=== PATIENT | male | born 1995 | race Caucasian/White ===

== ENCOUNTER 2016-08-29 22:36 | Emergency (ER) | payer MEDICAID ==
[~2016-08-29 22:36] MED LIST: Vancomycin(*) 1,000 MG in NS 0.9% 250 ML* 250 ML IVPB ONE
[2016-08-29] MEDS ORDERED: Vancomycin(*) 1,000 MG in NS 0.9% 250 ML* 250 ML IVPB ONE (23:36)
[2016-08-29 23:46] LABS: Hematocrit 47 % (42-52); Hemoglobin 16.1 g/dl (14.0-18.0); Mean Corpuscular HGB Conc 34 g/dl (31-36); Mean Corpuscular Hemoglobin 32 pg (27-31); Mean Corpuscular Volume 92 fL (80-94); Mean Platelet Volume 7 um3 (7.4-10.4); Red Blood Count 5.07 10^6/ul (4.0-5.4); Red Cell Distribution Width 13 % (10.5-15); White Blood Count 14.9 10^3/ul (3.5-10.8)
--- NOTE | 2016-08-29 23:48 | ED ---
Skin Complaint - HPI Summary HPI Summary: Patient presents to ED with CC of abscess over ventral side of left wrist and radial side of middle finger x 5 days which has been worsening. There are two areas of abscesses. One abscess is located on the ventral side of the wrist and measures 1.5cm x 2cm, fluctuant with a large pus pocket. He has another small .5cm x .5cm abscess to the radial side of his left middle finger with a pus pocket and surrounding erythema. He was seen at and given Bactrim. Today he states the redness is now streaking up the arm, both abscesses have grown in size with surrounding erythema with warmth. He is unable to fully extend the finger or flex the finger. He is able to extend the wrist, but with pain which radiates to the elbow. He endorses numbness and tingling in the tip of the finger with radiation to the wrist. Pain is 8/10 and throbbing. Denies fever, aches, chills. He is profusely sweating, but states its at his baseline. - History of Current Complaint Chief Complaint: EDRashSkinAbscess Time Seen by Provider: 08/29/16 22:57 Stated Complaint: LT HAND SWOLLEN Hx Obtained From: Patient Onset/Duration: Started Days Ago Skin Exposure Onset/Duration: Days Ago Timing: Constant Onset Severity: Severe Current Severity: Moderate Pain Intensity: 9 Pain Scale Used: 0-10 Numeric Skin Location: Hand Character: Swelling, Pain, Redness, Raised, Painful Aggravating Symptom(s): Touch Alleviating Symptom(s): Nothing Associated Signs & Symptoms: Fever, Tenderness, Red Streaks, Joint Swelling - Allergy/Home Medications Allergies/Adverse Reactions: Allergies Allergy/AdvReac Type Severity Reaction Status Date / Time No Known Allergies Allergy Verified 09/21/15 11:57 PMH/Surg Hx/FS Hx/Imm Hx Previously Healthy: Yes Endocrine/Hematology History: Denies: Hx Diabetes, Hx Thyroid Disease Cardiovascular History: Denies: Hx Hypertension Respiratory History: Denies: Hx Asthma, Hx Chronic Obstructive Pulmonary Disease (COPD) GI History: Denies: Hx Ulcer - Immunization History Hx Pertussis Vaccination: No Immunizations Up to Date: Unable to Obtain/Confirm Infectious Disease History: Denies: Hx Hepatitis, Hx Human Immunodeficiency Virus (HIV), Traveled Outside the [place] in Last 30 Days - Social History Occupation: Employed Full-time Lives: With Family Alcohol Use: Occasionally Hx Substance Use: No Substance Use Type: Reports: Marijuana Hx Tobacco Use: Yes Smoking Status (MU): Light Every Day Tobacco Smoker Type: Cigars Amount Used/How Often: VERY RARE - SMOKES CIGARS Length of Time of Smoking/Using Tobacco: PAST FEW YEARS Review of Systems Positive: Fever, Skin Diaphoresis Eyes: Negative Cardiovascular: Negative Respiratory: Negative Positive: no symptoms reported, see HPI Positive: Arthralgia - left middle finger Positive: Other - erythematous wrist and middle finger of left hand with streaking up the arm Neurological: Negative Psychological: Normal All Other Systems Reviewed And Are Negative: Yes Physical Exam Triage Information Reviewed: Yes Vital Signs On Initial Exam: Initial Vitals Temp Pulse Resp BP Pulse Ox 99.2 F 142 20 131/80 99 08/29/16 22:38 08/29/16 22:38 08/29/16 22:38 08/29/16 22:38 08/29/16 22:38 Vital Signs Reviewed: Yes Appearance: Positive: Well-Appearing, No Pain Distress, Well-Nourished Skin: Positive: Warm, Skin Color Reflects Adequate Perfusion, Other - erythematous wrist and streaking up the arm Head/Face: Positive: Normal Head/Face Inspection Eyes: Positive: EOMI, KE, Conjunctiva Clear Respiratory/Lung Sounds: Positive: Clear to Auscultation, Decreased Breath Sounds Cardiovascular: Positive: Normal, RRR, Pulses are Symmetrical in both Upper and Lower Extremities Musculoskeletal: Positive: Normal, Strength/ROM Intact Neurological: Positive: Normal, Sensory/Motor Intact, Alert, Oriented to Person Place, Time, Speech Normal Psychiatric: Positive: Normal Diagnostics - Vital Signs Vital Signs Temp Pulse Resp BP Pulse Ox 08/29/16 22:38 99.2 F 142 20 131/80 99 - Laboratory Result Diagrams: 08/29/16 23:34 Lab Statement: Any lab studies that have been ordered have been reviewed, and results considered in the medical decision making process. Re-Evaluation - Re-Evaluation First Eval Change: Unchanged Second Eval Change: Improved Third Eval Change: Worse - worsening pain - given pain medication Course/Dx - Course Course Of Treatment: Patient presents to ED with CC of abscess over ventral side of left wrist and radial side of middle finger x 5 days. He states he has been unable move the wrist or finger for several days with worsening stiffness. There are two areas of abscesses. One abscess is located on the ventral side of the wrist and measures 1.5cm x 2cm, fluctuant with a large pus pocket. He has another small .5cm x .5cm abscess to the radial side of his left middle finger with a pus pocket and surrounding erythema.There is diffuse fusiform swelling at the base of the PIP joint extending distally. He has a slightly flexed finger at rest and pain along the flexor tendon of the wrist and middle left finger with passive motion. Performed I and D to both abscesses with good effect. Vanco 1000mg given IV. Copious amount of pus and sanguinous discharge from both abscesses. Upon re-evaluation, patient continues to be unable to extend through wrist and finger and c/o worsening pain on passive ROM. Slightly flexed finger at rest and the finger continues to have symmetric fusiform swelling despite copious drainage. Dr. Frey spoke with Dr. Oswaldo Palumbo at 1am who suggested we reach out to Dr. Gould. Dr. Gould does not operate on hands and recommended to transfer based on no appropriate hand ortho rodent control worker at this time. Patient made aware and family made aware and is OK with plan. Provider spoke with sister on phone who agrees with plan and would like the transfer. Called [facility] at 2:30am for the transfer - Dr Eden in the ED and Dr. Moran in ortho hand surgery who accepted patient for IV abx and evaluation of hand in the morning. After phone call, provider was made aware the abscess + MRSA. [place] ambulance notified and is en route. WBC 14.9. - Differential Diagnoses - Skin Complaint Differential Diagnoses: Abscess, Cellulitis, Other - tenosynovitis - Diagnoses Provider Diagnoses: Infectious tenosynovitis Discharge - Discharge Plan Condition: Stable Disposition: TRANS HIGHER LVL OF CARE FAC Referrals: Non Staff,Doctor [Primary Care Provider] -
[2016-08-30] MEDS ORDERED: HYDROcodone/ACETAMIN 5-325 MG* 1 TAB PO ONE (02:07)
[2016-08-30] MEDS ORDERED: HYDROcodone/ACETAMIN 5-325 MG* 1 TAB ONE ×2 (02:08)
--- NOTE | 2016-08-30 08:44 | ED ---
Art Isabel Rebecca, scribed for Halina Frey MD on 08/29/16 at 2352 . Progress - Progress Note Progress Note: Evaluated pt at Carissa's request. He confirmed that Carissa drained the wound from 2 locations. He reports pain is an aching and burning and that he has a limited ROM. Was on the Bactrim for 3 days prior to today. Examination reveals: Sausage digit, limited flexion, pain w/ passive ROM, lymphangitic streak to the proximal 3rd of the middle finger on the left hand. Re-Evaluation - Re-Evaluation First Eval Change: Unchanged Second Eval Change: Improved Third Eval Change: Worse - worsening pain - given pain medication Course/Dx - Course Course Of Treatment: Per Carissa's request, evaluated pt in the room. Discussed care of pt with Dr. Palumbo who explained that he does not do hands and will happily transfer if necessary. Carissa is handling the patient's transfer. - Diagnoses Provider Diagnoses: Infectious tenosynovitis - Provider Notifications Discussed Care Of Patient With: Oswaldo Palumbo Time Discussed With Above Provider: 00:52 Instructed by Provider To: Other - He does not handle hands. He is happy ot transfer the pt if necessary. The documentation as recorded by the Art hawk Rebecca accurately reflects the service I personally performed and the decisions made by me, Halina Frey MD.
--- NOTE | 2016-09-02 08:44 | ED ---
Progress - Progress Note Progress Note: Evaluated pt at Carissa's request. He confirmed that Carissa drained the wound from 2 locations. He reports pain is an aching and burning and that he has a limited ROM. Was on the Bactrim for 3 days prior to today. Examination reveals: Sausage digit, limited flexion, pain w/ passive ROM, lymphangitic streak to the proximal 3rd of the middle finger on the left hand. UPDATE: pt's wound cx reveals staph aureus - pt was transferred to [facility] fax results. rona Anthony aware. SYDNI ALANIZ 09/02/2016 8:44AM Re-Evaluation - Re-Evaluation First Eval Change: Unchanged Second Eval Change: Improved Third Eval Change: Worse - worsening pain - given pain medication Course/Dx - Course Course Of Treatment: Per Carissa's request, evaluated pt in the room. Discussed care of pt with Dr. Palumbo who explained that he does not do hands and will happily transfer if necessary. Carissa is handling the patient's transfer. - Diagnoses Provider Diagnoses: Infectious tenosynovitis - Provider Notifications Time Discussed With Above Provider: 00:52 Instructed by Provider To: Other - He does not handle hands. He is happy ot transfer the pt if necessary.
== END 2016-08-30 02:42 | disposition short-term general hospital (02) ==
LOC: ED 22:36
DX: M65.132 Other infective (teno)synovitis, left wrist (principal); M65.142 Other infective (teno)synovitis, left hand; L02.414 Cutaneous abscess of left upper limb; L02.512 Cutaneous abscess of left hand; B95.62 Methicillin resistant Staphylococcus aureus infection as the cause of diseases classified elsewhere
CPT/HCPCS: 10060; 10061; 36415; 85025; 87070; 87077; 87186; 87205; 87640; 87641; 96365; 99283; J3370

== ENCOUNTER 2017-07-08 18:12 | Emergency (ER) | payer MEDICAID, OTHER ==
--- NOTE | 2017-07-08 18:44 | RAD ---
INDICATION: Right shoulder dislocation COMPARISON: None TECHNIQUE: AP and Y views were obtained. FINDINGS: There is anterior shoulder dislocation. There is a small Hill-Sachs deformity. No additional findings. IMPRESSION: ANTERIOR SHOULDER DISLOCATION.
--- NOTE | 2017-07-08 19:08 | ED ---
Upper Extremity Pain - HPI Summary HPI Summary: Complains of right shoulder pain, possible right shoulder dislocation status post lifting garbage can up above the shoulder with abduction movement today. States history of recent right shoulder dislocation past 3-6 months x one. States he recently started doing pushups again with no pain, thought prior dislocation had healed. States prior dislocation either in [place] or [place], he cannot remember exactly when it happened or how it happened. Rates pain a 6 out of 10. Denies loss of sensation or function distally in right hand or arm. Medical history is none. - History of Current Complaint Chief Complaint: EDExtremityUpper Stated Complaint: RT SHOULDER INJURY Time Seen by Provider: 07/08/17 18:27 Hx Obtained From: Patient Onset/Duration: Started Minutes Ago Timing: Constant Severity Initially: Moderate Severity Currently: Moderate Pain Location: Shoulder Character: Sharp Aggravating Factor(s): Movement, Lifting, Abduction Alleviating Factor(s): Rest Associated Signs & Symptoms: Negative: Redness, Bruising, Fever, Numbness/ Tingling - Allergies/Home Medications Allergies/Adverse Reactions: Allergies Allergy/AdvReac Type Severity Reaction Status Date / Time No Known Allergies Allergy Verified 07/08/17 18:15 PMH/Surg Hx/FS Hx/Imm Hx Endocrine/Hematology History: Denies: Hx Diabetes, Hx Thyroid Disease Cardiovascular History: Denies: Hx Hypertension Respiratory History: Denies: Hx Asthma, Hx Chronic Obstructive Pulmonary Disease (COPD) GI History: Denies: Hx Ulcer Infectious Disease History: No Infectious Disease History: Denies: Hx Hepatitis, Hx Human Immunodeficiency Virus (HIV), Traveled Outside the in Last 30 Days - Social History Alcohol Use: Daily Alcohol Amount: 6 pack beer daily Hx Substance Use: No Substance Use Type: Reports: Marijuana Hx Tobacco Use: Yes Smoking Status (MU): Light Every Day Tobacco Smoker Type: Cigars Amount Used/How Often: VERY RARE - SMOKES CIGARS Length of Time of Smoking/Using Tobacco: PAST FEW YEARS Review of Systems Constitutional: Negative Eyes: Negative ENT: Negative Cardiovascular: Negative Respiratory: Negative Gastrointestinal: Negative Genitourinary: Negative Positive: Arthralgia Skin: Negative Neurological: Negative Psychological: Normal All Other Systems Reviewed And Are Negative: Yes Physical Exam - Summary Physical Exam Summary: PMS intact distally on right upper extremity. No evidence of erythema, extra warmth, ecchymosis to right shoulder. Full range of motion of right elbow, right wrist without indication of pain. Pain with abduction of right shoulder. Possible swelling/deformity to right anterior shoulder. Triage Information Reviewed: Yes Vital Signs On Initial Exam: Initial Vitals Temp Pulse Resp BP Pulse Ox 97.6 F 86 24 149/97 100 07/08/17 18:15 07/08/17 18:15 07/08/17 18:15 07/08/17 18:15 07/08/17 18:15 Vital Signs Reviewed: Yes Appearance: Positive: Well-Appearing Skin: Positive: Warm Head/Face: Positive: Normal Head/Face Inspection Eyes: Positive: Normal Neck: Positive: Supple Respiratory/Lung Sounds: Positive: Clear to Auscultation Cardiovascular: Positive: Normal Abdomen Description: Positive: Nontender Neurological: Positive: Normal Psychiatric: Positive: Normal AVPU Assessment: Alert - [place] Coma Scale Best Eye Response: 4 - Spontaneous Best Motor Response: 6 - Obeys Commands Best Verbal Response: 5 - Oriented Coma Scale Total: 15 Procedures - Joint Reduction Joint Reduction Site: shoulder (R) Conscious Sedation: Yes Reduction Attempts: 1 - initially provided traction in 90 degree postion directly away from right shoulder, then traction by pulling rigth arm across chest towards left shoulder. Pre-Procedure NV Exam: Yes Diagnostics - Vital Signs Vital Signs Temp Pulse Resp BP Pulse Ox 07/08/17 18:26 91 166/105 100 07/08/17 18:15 97.6 F 86 24 149/97 100 - Laboratory Lab Statement: Any lab studies that have been ordered have been reviewed, and results considered in the medical decision making process. - Radiology rt shoulder Xray Interpretation: Positive (See Comments) - Anterior dislocation Radiology Interpretation Completed By: Radiologist postreduction Xray Interpretation: Positive (See Comments) - Confirmed joint reduction rt shoulder Radiology Interpretation Completed By: Radiologist Course/Dx - Course Course Of Treatment: Anterior dislocation. Reduced with moderate sedation. Reduction confirmed by x-ray. Sling and swath provided here in the ED. We'll provide prescription for pain medication and follow-up with orthopedics - Diagnoses Provider Diagnoses: Anterior shoulder dislocation Discharge - Sign-Out/Discharge Documenting (check all that apply): Discharge/Admit/Transfer - Discharge Plan Condition: Stable Disposition: HOME Patient Education Materials: Shoulder Dislocation (ED) Referrals: Non Staff,Doctor [Primary Care Provider] - Solitario Golden MD [Medical Doctor] - Additional Instructions: Follow-up with primary care and orthopedics Dr. Bond. Return to the ED for any new or worsening symptoms - Billing Disposition and Condition Condition: STABLE Disposition: HOME
[2017-07-08] MEDS ORDERED: Ondansetron ODT TAB* 4 MG PO ONE (19:23)
[2017-07-08] MEDS ORDERED: fentaNYL* 50 MCG/ML 2 ML VIAL (100 MCG VIAL) IV SLOW PU ONE (19:23)
[2017-07-08] MEDS ORDERED: Midazolam* 1 MG/ML 10 ML VIAL (10 MG) IV ONE (19:24)
[2017-07-08] MEDS ORDERED: Flumazenil* 0.1 MG/ML 5 ML MDV IV ONE (19:24)
[2017-07-08] MEDS ORDERED: Naloxone* 0.4 MG/ML 1 ML VIAL IV PUSH ONE (19:25)
[2017-07-08] MEDS ORDERED: NS 0.9% 250 ML* 250 ML IV SCH (20:00)
[2017-07-08] MEDS ORDERED: Midazolam* 1 MG/ML 10 ML VIAL (10 MG) ONE (20:17)
--- NOTE | 2017-07-08 21:02 | RAD ---
INDICATION: Reduction COMPARISON: Right shoulder same date TECHNIQUE: A single AP view is obtained. FINDINGS: There is satisfactory reduction. There is a Hill-Sachs deformity. No additional significant findings. IMPRESSION: SATISFACTORY REDUCTION. HILL-SACHS DEFORMITY.
--- NOTE | 2017-07-08 21:51 | ED ---
I, Sharon Kim, saumyaibed for Himanshu Tolentino MD on 07/08/17 at 2148 . Progress - Progress Note Progress Note: Moderate sedation performed by myself. Course/Dx - Course Course Of Treatment: see moderate sedation paperwork for documentation of moderate sedation - Diagnoses Provider Diagnoses: Anterior shoulder dislocation Discharge - Sign-Out/Discharge Documenting (check all that apply): Discharge/Admit/Transfer - Discharge Plan Condition: Stable Disposition: HOME Prescriptions: HYDROcodone/ACETAMIN 5-325 MG* [Ravia 5-325 TAB*] 1 tab PO Q6H PRN 2 Days #8 tab MDD 4-6 tabs PRN Reason: Pain Patient Education Materials: Shoulder Dislocation (ED) Referrals: Non Staff,Doctor [Primary Care Provider] - Solitario Golden MD [Medical Doctor] - Additional Instructions: Follow-up with primary care and orthopedics Dr. Bond. Return to the ED for any new or worsening symptoms - Billing Disposition and Condition Condition: STABLE Disposition: HOME The documentation as recorded by the Julio hawk Jennifer accurately reflects the service I personally performed and the decisions made by me, Himanshu Tolentino MD.
[2017-07-08 21:55] VITALS: BP 126/96
== END 2017-07-08 22:00 | disposition home or self-care (01) ==
LOC: ED 18:12
DX: S43.004A Unspecified dislocation of right shoulder joint, initial encounter (principal); X50.9XXA Other and unspecified overexertion or strenuous movements or postures, initial encounter; Y92.9 Unspecified place or not applicable; F17.290 Nicotine dependence, other tobacco product, uncomplicated
CPT/HCPCS: 23650; 96374; 99284; A9270-GY; J2250; J2310; J3010

== ENCOUNTER 2017-09-09 15:36 | Emergency (ER) | payer SELFPAY ==
[2017-09-09 15:49] VITALS: BP 145/74
[2017-09-09] MEDS ORDERED: LORazepam TAB(*) 1 MG PO ONE (15:59)
[2017-09-09] MEDS ORDERED: LORazepam INJ* 2 MG/ML 1 ML VIAL ONE (16:02)
[2017-09-09] MEDS ORDERED: LORazepam INJ* 2 MG/ML 1 ML VIAL IM ONE (16:02)
--- NOTE | 2017-09-09 16:18 | RAD ---
INDICATION: Right shoulder dislocation. History of recurrent dislocations. COMPARISON: Right shoulder July 08, 2017 TECHNIQUE: AP and Y views were obtained. FINDINGS: There is anterior shoulder dislocation. There is a small Hill-Sachs deformity. No additional findings. IMPRESSION: RECURRENT RIGHT SHOULDER DISLOCATION.
--- NOTE | 2017-09-09 17:02 | RAD ---
INDICATION: Right shoulder dislocation-post reduction COMPARISON: Right shoulder same date TECHNIQUE: AP and Y views were obtained. FINDINGS: There is satisfactory reduction. There is a small Hill-Sachs deformity. No additional findings. IMPRESSION: SATISFACTORY REDUCTION
--- NOTE | 2017-09-09 17:34 | ED ---
Upper Extremity Pain - HPI Summary HPI Summary: Patient is a 22-year-old male with history of shoulder dislocations presenting to the with a right shoulder dislocation while swimming this afternoon. He endorses moderate amount of pain. There is an obvious deformity in the right shoulder. Denies any numbness or tingling in the ipsilateral arm. Denies any ecchymosis. Good cap refill. Pulses +2 intact bilaterally. - History of Current Complaint Chief Complaint: UCUpperExtremity Stated Complaint: RIGHT SHOULDER INJURY Time Seen by Provider: 09/09/17 15:40 Hx Obtained From: Patient Mechanism Of Injury: Twisted Onset/Duration: Started Hours Ago Timing: Constant Severity Initially: Moderate Severity Currently: Moderate Pain Location: Shoulder Character: Aching Aggravating Factor(s): Lifting, Flexion, Extension Alleviating Factor(s): Rest Associated Signs & Symptoms: Negative: Swelling, Redness, Bruising, Numbness/ Tingling Related History: Dominant Hand Right - Risk Factors Non-Orthopedic Risk Factor: Negative DVT Risk Factors: Negative Septic Arthritis Risk Factor: Negative Compartment Syndrome Risk Factors: Pain - Allergies/Home Medications Allergies/Adverse Reactions: Allergies Allergy/AdvReac Type Severity Reaction Status Date / Time No Known Allergies Allergy Verified 09/09/17 15:50 Home Medications: Home Medications NK [No Home Medications Reported] 09/09/17 [History Confirmed 09/09/17] PMH/Surg Hx/FS Hx/Imm Hx Previously Healthy: Yes Endocrine/Hematology History: Denies: Hx Diabetes, Hx Thyroid Disease Cardiovascular History: Denies: Hx Hypertension Respiratory History: Denies: Hx Asthma, Hx Chronic Obstructive Pulmonary Disease (COPD) GI History: Denies: Hx Ulcer - Immunization History Hx Pertussis Vaccination: No Immunizations Up to Date: No Infectious Disease History: Yes Infectious Disease History: Denies: Hx Hepatitis, Hx Human Immunodeficiency Virus (HIV), Traveled Outside the US in Last 30 Days - Family History Known Family History: Positive: Unknown - Social History Occupation: Employed Part-time Lives: Dormitory/Roommates Alcohol Use: Daily Alcohol Amount: 6 pack beer daily Hx Substance Use: No Substance Use Type: Reports: Marijuana Hx Tobacco Use: Yes Smoking Status (MU): Light Every Day Tobacco Smoker Type: Cigars Amount Used/How Often: VERY RARE - SMOKES CIGARS Length of Time of Smoking/Using Tobacco: PAST FEW YEARS Review of Systems Constitutional: Negative Eyes: Negative Cardiovascular: Negative Respiratory: Negative Positive: Arthralgia Skin: Negative Psychological: Normal All Other Systems Reviewed And Are Negative: Yes Physical Exam Triage Information Reviewed: Yes Vital Signs On Initial Exam: Initial Vitals Temp Pulse Resp BP Pulse Ox 99.1 F 105 19 145/74 100 09/09/17 15:42 09/09/17 15:42 09/09/17 15:42 09/09/17 15:42 09/09/17 15:42 Vital Signs Reviewed: Yes Appearance: Positive: Well-Appearing, Well-Nourished Skin: Positive: Warm, Skin Color Reflects Adequate Perfusion Head/Face: Positive: Normal Head/Face Inspection Eyes: Positive: EOMI, KE, Conjunctiva Clear Neck: Positive: Supple, No Lymphadenopathy Respiratory/Lung Sounds: Positive: Clear to Auscultation, Breath Sounds Present Cardiovascular: Positive: RRR, Pulses are Symmetrical in both Upper and Lower Extremities Musculoskeletal: Positive: Pain @ - right shoulder dislocation Neurological: Positive: Speech Normal Psychiatric: Positive: Normal, Affect/Mood Appropriate Diagnostics - Vital Signs Vital Signs Temp Pulse Resp BP Pulse Ox 09/09/17 16:05 18 09/09/17 15:42 99.1 F 105 19 145/74 100 - Laboratory Lab Statement: Any lab studies that have been ordered have been reviewed, and results considered in the medical decision making process. Course/Dx - Course Course Of Treatment: During the course drink, the patient is evaluated for right shoulder injury while swimming. Patient is given 2 mg IM Ativan. X-ray obtained which shows an anterior shoulder dislocation. Traction, countertraction with Dr. Edward assisting provided with adequate reduction. Post reduction films show adequate reduction. Sling given. 3 weeks mobilization. Shoulder pendulum exercises given. Patient is okay with discharge at this time. Safe discharge home. - Diagnoses Provider Diagnoses: Right anterior shoulder pain Discharge - Sign-Out/Discharge Documenting (check all that apply): Patient Departure - Discharge Plan Condition: Stable Disposition: HOME Patient Education Materials: Shoulder Dislocation Exercises (GEN), Shoulder Dislocation (ED) Referrals: No Primary Care Phys,NOPCP [Primary Care Provider] - Additional Instructions: Three weeks immobilization Shoulder exercises 2-3 times per day everyday while in the sling - Billing Disposition and Condition Condition: STABLE Disposition: Home
== END 2017-09-09 17:20 | disposition home or self-care (01) ==
LOC: UCEAST 15:36
DX: M25.511 Pain in right shoulder (principal); F17.200 Nicotine dependence, unspecified, uncomplicated; X50.1XXA Overexertion from prolonged static or awkward postures, initial encounter; Y92.9 Unspecified place or not applicable
CPT/HCPCS: 23650; 96372; 99212; G0463; J2060